=== PATIENT | female | born 1950 | race Caucasian/White ===

== ENCOUNTER 2017-01-18 21:44 | Emergency (ER) | payer MEDICARE, BC ==
[~2017-01-18 21:44] MED LIST: ACTIVELLA TABLE1 TAB; AVAPRO300 M1 PO; CLIDINIUM-CDP C1 CAP; DETROL LA; DICLOFENAC; DITROPAN XL10 MG; DYAZIDE 37.5/251 CAP; EVISTA60 M1; HYDROCHLOROTHIA25 MG; LIPITOR40 MG; MOBIC15 MG; SEE BELOW; TALADINE150 MG; TIROSINT100 MCG
== END 2017-01-18 22:35 | disposition home or self-care (01) ==
LOC: SED 21:44
DX: R19.7 Diarrhea, unspecified (principal); I10 Essential (primary) hypertension; E03.9 Hypothyroidism, unspecified; Z79.899 Other long term (current) drug therapy
CPT/HCPCS: 99282

== ENCOUNTER 2017-03-04 19:46 | Emergency (ER) | payer MEDICARE, BC ==
--- NOTE | ~2017-03-04 | EKG ---
PATIENT: NADINE BROWER UNIT #: [id number] Ventricular Rate: 62 BPM Atrial Rate: 62 BPM P-R Interval: 180 ms QRS Duration: 84 ms Q-T Interval: 452 ms QTC Calculation(Bezet): 458 ms P [place]: 84 degrees Calculated R [place]: 39 degrees Calculated T [place]: 36 degrees Diagnosis Line: Normal sinus rhythm Diagnosis Line: Normal ECG Diagnosis Line: No previous ECGs available Diagnosis Line: Confirmed by CAROLYN CHAVEZ MD ([id number]) on Diagnosis Line: 03/06/2017 4:45:36 PM INTERPRETING MD: SCOTT CARMICHAEL
[2017-03-04] MEDS ORDERED: ALBUTEROL17 GM INH (20:17)
[2017-03-04] MEDS ORDERED: COZAAR25 MG PO (20:20)
[2017-03-04] MEDS ORDERED: HYDROXYZINE HCL10 MG PO (20:20)
[2017-03-04] MEDS ORDERED: CARAFATE1 GM PO (20:21)
[2017-03-04] MEDS ORDERED: OMEPRAZOLE20 M2 PO (20:21)
[2017-03-04] MEDS ORDERED: B-121000 MC1 PO (20:22)
[2017-03-04 20:52] LABS: BASOPHIL% 0.3 % (0-2.5); EOSINOPHIL% 0.3 % (0.0-7.0); HEMATOCRIT 37.6 % (35.0-45.0); HEMOGLOBIN 13.2 gm/dL (12.0-16.0); LYMPHOCYTE# 2.3 X10e3 (1.0-3.5); LYMPHOCYTE% 40.6 % (17.0-45.0); MEAN CELL VOLUME 98.3 FL (83-96); MEAN CORPUSCULAR HEMOGLOBIN 34.4 PG (28-34); MEAN PLATELET VOLUME 7.6 FL (6.5-11.5); MONOCYTE# 0.3 X10e3 (0-1.0); MONOCYTE% 5.2 % (3.0-12.0); NEUTROPHIL# 3.1 X10e3 (1.5-7.1); NEUTROPHIL% 53.6 % (40-75); PLATELET COUNT 148 X10e3 (140-420); RED BLOOD COUNT 3.83 X10e (3.90-5.30); WHITE BLOOD COUNT 5.7 X10e3 (4.0-10.5)
[2017-03-04 20:53] LABS: DIFF IND NO
[2017-03-04 21:07] LABS: BUN/CREATININE RATIO 21.25; CREATININE SERUM 0.8 mg/dL (0.6-1.4); GLOM FILT RATE Estimated 77.4 mL/min (>60)
[2017-03-04 21:07] LABS: POC - CKMB 1.2 ng/mL (0.0-7.9)
[2017-03-04 21:08] LABS: POC - TROPONIN <0.05 ng/mL (<=0.05)
[2017-03-04 21:10] LABS: POTASSIUM 2.5 mmol/L (3.5-5.1)
[2017-03-04 22:03] LABS: URINE SOURCE CLEAN CATCH
[2017-03-04 22:05] LABS: MICRO INDICATED? YES; URINE APPEARANCE CLEAR; URINE BILIRUBIN NEG (NEG); URINE BLOOD TRACE-INTACT (NEG); URINE COLOR YELLOW; URINE GLUCOSE NEG (NORM); URINE KETONE NEG (NEG); URINE LEUKOCYTE ESTERASE TRACE (NEG); URINE NITRATE NEG (NEG); URINE PH 7.5 (5-8); URINE PROTEIN NEG (NEG); URINE UROBILINOGEN 0.2 MG/DL (NORM)
[2017-03-04 22:07] LABS: CULTURE INDICATED? YES; URINE BACTERIA 1+ (NEG); URINE SQUAMOUS EPITHELIAL CELL FEW /[HPF]; URINE WBC 0-2 /[HPF] (0-5)
== END 2017-03-05 00:48 | disposition home or self-care (01) ==
LOC: SED 19:46
PROVIDERS: Emergency Medicine
DX: E87.6 Hypokalemia (principal); R55 Syncope and collapse; I10 Essential (primary) hypertension; Z79.899 Other long term (current) drug therapy
CPT/HCPCS: 36415; 80048; 81003; 82553; 83735; 84132; 84484; 85025; 87086; 93005; 96361; 96365; 96366; 96375; 99284; J2405